=== PATIENT | male | born 1995 | race American Indian/Alaskan Native ===

== ENCOUNTER 2016-09-09 21:12 | Emergency (ER) | payer SELFPAY ==
[2016-09-09 22:12] LABS: Hematocrit 46.3 % (35.5-45.6); Hemoglobin 14.9 gm/dl (11.8-15.2); Mean Corpuscular HGB Conc 32 % (32-34); Mean Corpuscular Hemoglobin 28 pg (28-32); Mean Corpuscular Volume 86 fl (84-94); Platelet Count 193 K/mm3 (140-440); Red Cell Distribution Width 13.3 % (13.2-15.2); White Blood Count 6.3 K/mm3 (4.5-11.0)
[2016-09-09 22:15] LABS: Alanine Aminotransferase 16 units/L (7-56); Albumin 4.4 g/dL (3.9-5); Albumin/Globulin Ratio 1.5 %; Alkaline Phosphatase 51 units/L (35-129); Anion Gap 20 mmol/L; Bilirubin,Total < 0.20 mg/dL (0.1-1.2); Blood Urea Nitrogen 15 mg/dL (9-20); Calcium 9.1 mg/dL (8.4-10.2); Carbon Dioxide 21 mmol/L (22-30); Chloride 104.2 mmol/L (98-107); Glucose 107 mg/dL (75-100); Lipase 40 units/L (13-60); Sodium 141 mmol/L (137-145); Total Protein 7.3 g/dL (6.3-8.2)
[2016-09-09 23:02] LABS: Bilirubin,Urine NEG (Negative); Blood,Urine NEG (Negative); Ketones,Urine NEG (Negative); Leukocyte Esterase,Urine NEG (Negative); Mucus,Urine FEW /HPF; Nitrite,Urine NEG (Negative); Protein,Urine <15 mg/dL mg/dL (Negative); Urobilinogen,Urine < 2.0 mg/dL (<2.0)
--- NOTE | 2016-09-10 00:08 | Emergency Department Report ---
HPI - General Chief Complaint: Urogenital-Male Time Seen by Provider: 09/09/16 23:55 - HPI HPI: Room 4 The patient is a 20-year-old male presenting with a chief complaint of flank pain and frequency. Patient states she has a history of chronic back pain for 1 -2 years but has never sought medical attention. The patient states yesterday he developed urinary frequency. Patient denies dysuria or hematuria. Patient denies penile discharge. Patient denies fever. Location: Right flank Duration: Pain times one to 2 years, frequency since yesterday Quality: Dull Severity: Moderate Modifying factors: [see above] Context: [see above] Mode of transportation: Unknown ED Past Medical Hx - Past Medical History Hx Hypertension: Yes Additional medical history: Mass on bilateral kidneys - Surgical History Past Surgical History?: No - Social History Smoking Status: Never Smoker Substance Use Type: Marijuana - Medications Home Medications: Home Medications Medication Instructions Recorded Confirmed Last Taken Type Ibuprofen [Motrin 800 MG tab] 800 mg PO Q8HR PRN #20 tablet 09/10/16 Unknown Rx Sulfamethoxazole/Trimethoprim 1 each PO BID #14 tablet 09/10/16 Unknown Rx [Bactrim DS TAB] ED Review of Systems ROS: Stated complaint: URGENCY TO URINATE Other details as noted in HPI Comment: All other systems reviewed and negative Constitutional: denies: chills, fever Eyes: denies: eye pain, eye discharge, vision change ENT: denies: ear pain, throat pain Respiratory: denies: cough, shortness of breath, wheezing Cardiovascular: denies: chest pain, palpitations Endocrine: no symptoms reported Gastrointestinal: abdominal pain Genitourinary: frequency. denies: dysuria, hematuria, discharge Musculoskeletal: back pain. denies: joint swelling, arthralgia Skin: denies: rash, lesions Neurological: denies: headache, weakness, paresthesias Psychiatric: denies: anxiety, depression Hematological/Lymphatic: denies: easy bleeding, easy bruising Physical Exam - Physical Exam Vital Signs: Vital Signs 09/09/16 09/09/16 09/09/16 21:31 23:08 23:51 Temperature 98.4 F 97.9 F 98.1 F Pulse Rate 78 66 89 Respiratory 18 20 14 Rate Blood Pressure 196/116 152/103 Blood Pressure 152/99 [Left] O2 Sat by Pulse 100 98 97 Oximetry Physical Exam: GENERAL: The patient is well-developed well-nourished male lying on stretcher sleeping not appearing to be in acute distress. Easily awakened HEENT: Normocephalic. Atraumatic. Extraocular motions are intact. Patient has moist mucous membranes. NECK: Supple. Regular midline CHEST/LUNGS: Clear to auscultation. There is no respiratory distress noted. HEART/CARDIOVASCULAR: Regular. There is no tachycardia. There is no gallop rub or murmur. ABDOMEN: Abdomen is soft, with mild discomfort to palpation in the right lower quadrant and right upper quadrant. Patient has normal bowel sounds. There is no abdominal distention. SKIN: There is no rash. There is no edema. There is no diaphoresis. NEURO: The patient is awake, alert, and oriented. The patient is cooperative. The patient has normal speech MUSCULOSKELETAL: There is no CVA tenderness. There is no evidence of acute injury. ED Course Vital Signs 09/09/16 09/09/16 09/09/16 21:31 23:08 23:51 Temperature 98.4 F 97.9 F 98.1 F Pulse Rate 78 66 89 Respiratory 18 20 14 Rate Blood Pressure 196/116 152/103 Blood Pressure 152/99 [Left] O2 Sat by Pulse 100 98 97 Oximetry ED Medical Decision Making - Lab Data Result diagrams: 09/09/16 21:44 09/09/16 21:44 Laboratory Tests 09/09/16 09/09/16 09/09/16 21:44 21:44 22:40 WBC 6.3 RBC 5.40 H Hgb 14.9 Hct 46.3 H MCV 86 MCH 28 MCHC 32 RDW 13.3 Plt Count 193 Sodium 141 Potassium 4.0 Chloride 104.2 Carbon Dioxide 21 L Anion Gap 20 BUN 15 Creatinine 1.0 Estimated GFR > 60 BUN/Creatinine Ratio 15.00 Glucose 107 H Calcium 9.1 Total Bilirubin < 0.20 AST 20 ALT 16 Alkaline Phosphatase 51 Total Protein 7.3 Albumin 4.4 Albumin/Globulin Ratio 1.5 Lipase 40 Urine Color Yellow Urine Turbidity Clear Urine pH 5.0 Ur Specific [place] 1.027 Urine Protein <15 mg/dl Urine Glucose (UA) Neg Urine Ketones Neg Urine Blood Neg Urine Nitrite Neg Urine Bilirubin Neg Urine Urobilinogen < 2.0 Ur Leukocyte Esterase Neg Urine WBC (Auto) 1.0 Urine RBC (Auto) 2.0 Urine Mucus Few - Radiology Data Radiology results: report reviewed (CT abdomen and pelvis), image reviewed (CT abdomen and pelvis) CT abdomen and pelvis (read by radiologist)-there is no evidence of intestinal or urinary tract obstruction. No ileus or enteritis. The appendix is normal. Bilateral scattered renal corpus cyst. - Medical Decision Making Given patient's history of urinary frequency I will treat empirically for UTI. The patient's urinalysis only shows some mucus and is not necessarily definitive for UTI however given the lack of other etiologies of the patient's symptoms I will initiate antibiotic therapy. - Differential Diagnosis UTI, pyelonephritis, renal colic, appendicitis, diabetes, Critical care attestation.: If time is entered above; I have spent that time in minutes in the direct care of this critically ill patient, excluding procedure time. ED Disposition Clinical Impression: Urinary frequency, Right flank pain Disposition: TO HOME OR SELFCARE Is pt being admited?: No Does the pt Need Aspirin: No Condition: Stable Instructions: Dysuria (ED), Flank Pain (ED) Additional Instructions: Return to the emergency department immediately should you develop worsening symptoms, fever, inability to tolerate food or liquid or any other concerns. Prescriptions: Ibuprofen [Motrin 800 MG tab] 800 mg PO Q8HR PRN #20 tablet PRN Reason: Pain Sulfamethoxazole/Trimethoprim [Bactrim DS TAB] 1 each PO BID #14 tablet Referrals: DEMETRIO MCNEAL MD [Staff Physician] - 3-5 Days (Dr. Mcneal is a urologist. Please follow up with him for further evaluation) NOÉ JOSEPH JR, MD [Staff Physician] - 3-5 Days (Dr. Joseph is a primary physician. Please follow up with him to be established as a patient) Time of Disposition: 02:26
--- NOTE | 2016-09-10 02:16 | Cat Scan Report ---
FINAL REPORT PROCEDURE: CT ABDOMEN PELVIS WO CON TECHNIQUE: Computerized axial tomography of the abdomen and pelvis was performed without intravenous contrast. This study is performed without intravascular contrast material and its sensitivity for abdominal and pelvic pathology, including neoplasms, inflammation, abscess, free fluid, thrombosis, arterial dissection and infarction, is reduced compared with a contrast enhanced study. HISTORY: right flank pain. h/o renal masses COMPARISON: No prior studies are available for comparison. FINDINGS: Visualized lower thorax: No significant abnormality. Liver: Normal size and attenuation. Spleen: Normal size and attenuation. Gallbladder and biliary system: Normal. Pancreas: Normal. Adrenals: Normal. Kidneys: Both kidneys have a normal size. There are numerous areas of hypoattenuation identified throughout both renal cortex. Multiple renal cortical cysts are identified. The largest measure up to 2 centimeters. No hydronephrosis. No renal stones.. GI tract: Stomach is normal. The small bowel has a normal caliber. No obstruction, ileus or enteritis. The cecum, appendix and colon are normal.. Lymph nodes and mesentery: Normal. Vasculature: Normal. Bladder: Normal. Reproductive organs: Normal. Peritoneum: No free fluid. Musculoskeletal structures: No significant abnormality. Other: None. IMPRESSION: There is no evidence of intestinal or urinary tract obstruction. No ileus or enteritis. The appendix is normal. Bilateral scattered renal cortical cysts..
[2016-09-10 03:01] VITALS: BP 129/78
== END 2016-09-10 03:02 | disposition home or self-care (01) ==
LOC: ED 21:12
DX: R35.0 Frequency of micturition (principal); R10.30 Lower abdominal pain, unspecified; I10 Essential (primary) hypertension; F12.10 Cannabis abuse, uncomplicated
CPT/HCPCS: 36415; 74176; 80053; 81001; 83690; 85027; 99284

== ENCOUNTER 2016-12-06 02:13 | Emergency (ER) | payer SELFPAY ==
[2016-12-06 09:25] LABS: Bilirubin,Urine NEG (Negative); Blood,Urine NEG (Negative); Ketones,Urine NEG (Negative); Leukocyte Esterase,Urine NEG (Negative); Mucus,Urine FEW /HPF; Nitrite,Urine NEG (Negative); Protein,Urine <15 mg/dL mg/dL (Negative); Urobilinogen,Urine < 2.0 mg/dL (<2.0)
[2016-12-06] MEDS ORDERED: TORADOL IM ONE (11:33)
--- NOTE | 2016-12-06 11:38 | Emergency Department Report ---
ED General Adult HPI - General Chief complaint: Urogenital-Male Stated complaint: LOWER BACK PAIN Time Seen by Provider: 12/06/16 11:26 Source: patient Mode of arrival: Ambulatory Limitations: No Limitations - History of Present Illness Initial comments: pt is a 21 y/o aam with hx htn diet controlled, and low back with renal cyst x 2 yrs seen in ed 09/2016 for same dx with uti, presents today for low back pain with dysuria frequency and urgency x last 4 days worsened to day prompting pt to seek tx in ed, pt has not seen urologist as advised on previous visit but does endorse that symptoms are "worse this time" pt denies penile discharge no unprotected sex, there is no fever no chills no n/v no abdominal pain , no weakness no tingling no no paresthesia no loss or decreased in bowel or bladder function in contrast to that stated in traige note. pt advise that " I just have to pee all the time" Onset/Timin -: year(s) Location: back Radiation: flank Severity scale (0 -10): 8 Quality: aching, sharp Consistency: intermittent Improves with: none Worsens with: other (voiding ) Associated Symptoms: denies: confusion, chest pain, cough, diaphoresis, fever/ chills, headaches, loss of appetite, malaise, nausea/vomiting, rash, seizure, shortness of breath, syncope, weakness Treatments Prior to Arrival: none - Related Data Previous Rx's Medication Instructions Recorded Last Taken Type Ibuprofen [Motrin 800 MG tab] 800 mg PO Q8HR PRN #20 tablet 09/10/16 Unknown Rx Sulfamethoxazole/Trimethoprim 1 each PO BID #14 tablet 09/10/16 Unknown Rx [Bactrim DS TAB] traMADol [Ultram 50 MG tab] 50 mg PO Q6HR PRN #20 tablet 12/06/16 Unknown Rx Allergies Allergy/AdvReac Type Severity Reaction Status Date / Time No Known Allergies Allergy Unverified 09/09/16 21:35 ED Review of Systems ROS: Stated complaint: LOWER BACK PAIN Other details as noted in HPI Constitutional: denies: chills, fever Eyes: denies: eye pain, eye discharge, vision change ENT: denies: ear pain, throat pain Respiratory: denies: cough, shortness of breath, wheezing Cardiovascular: denies: chest pain, palpitations Endocrine: no symptoms reported Gastrointestinal: denies: abdominal pain, nausea, vomiting, diarrhea, constipation, hematemesis, melena, hematochezia Genitourinary: urgency, dysuria, frequency. denies: hematuria, discharge, testicular pain, testicular mass Musculoskeletal: denies: back pain, joint swelling, arthralgia Skin: denies: rash, lesions Neurological: denies: headache, weakness, paresthesias Psychiatric: denies: anxiety, depression Hematological/Lymphatic: denies: easy bleeding, easy bruising ED Past Medical Hx - Past Medical History Hx Hypertension: Yes Additional medical history: Mass on bilateral kidneys - Social History Smoking Status: Current Some Day Smoker Substance Use Type: None, Marijuana - Medications Home Medications: Home Medications Medication Instructions Recorded Confirmed Last Taken Type Ibuprofen [Motrin 800 MG tab] 800 mg PO Q8HR PRN #20 tablet 09/10/16 Unknown Rx Sulfamethoxazole/Trimethoprim 1 each PO BID #14 tablet 09/10/16 Unknown Rx [Bactrim DS TAB] traMADol [Ultram 50 MG tab] 50 mg PO Q6HR PRN #20 tablet 12/06/16 Unknown Rx ED Physical Exam - General Limitations: No Limitations ED Course Vital Signs 12/06/16 12/06/16 12/06/16 02:31 05:24 08:49 Temperature 98.6 F 97.8 F Pulse Rate 85 86 Respiratory 18 16 Rate Blood Pressure 142/89 152/86 O2 Sat by Pulse 98 98 99 Oximetry 12/06/16 11:50 Temperature Pulse Rate Respiratory 14 Rate Blood Pressure O2 Sat by Pulse Oximetry ED Medical Decision Making - Lab Data Result diagrams: 12/06/16 11:55 12/06/16 11:55 Laboratory Tests 12/06/16 12/06/16 12/06/16 08:48 11:55 11:55 WBC 4.8 RBC 5.31 H Hgb 14.4 Hct 45.2 MCV 85 MCH 27 L MCHC 32 RDW 13.8 Plt Count 195 Seg Neutrophils % Oil Well Pumper Sodium 141 Potassium 4.0 Chloride 104.3 Carbon Dioxide 25 Anion Gap 16 BUN 14 Creatinine 1.0 Estimated GFR > 60 BUN/Creatinine Ratio 14 Glucose 136 H Calcium 8.8 Total Bilirubin 0.30 AST 17 ALT 19 Alkaline Phosphatase 52 Total Protein 6.6 Albumin 3.8 L Albumin/Globulin Ratio 1.4 Urine Color Yellow Urine Turbidity Clear Urine pH 6.0 Ur Specific [place] 1.020 Urine Protein <15 mg/dl Urine Glucose (UA) Neg Urine Ketones Neg Urine Blood Neg Urine Nitrite Neg Urine Bilirubin Neg Urine Urobilinogen < 2.0 Ur Leukocyte Esterase Neg Urine WBC (Auto) 1.0 Urine RBC (Auto) 5.0 Urine Mucus Few - EKG Data -: EKG Interpreted by Me - Radiology Data Radiology results: report reviewed, image reviewed bilat renal cyst, small nonobstructing renal calculi right, no change from ct - Medical Decision Making pt is a 21 y/o aam with hx htn diet controlled, and low back with renal cyst x 2 yrs seen in ed 09/2016 for same dx with uti, presents today for low back pain with dysuria frequency and urgency x last 4 days worsened to day prompting pt to seek tx in ed, pt has not seen urologist as advised on previous visit but does endorse that symptoms are "worse this time" pt denies penile discharge no unprotected sex, there is no fever no chills no n/v no abdominal pain , no weakness no tingling no no paresthesia no loss or decreased in bowel or bladder function in contrast to that stated in traige note. pt advise that " I just have to pee all the time" exam: pt appears well nontoxic wellnourish and hydrated tolerationg po intake without n/v no cva tenderness no penile discharge no rash no lymph no testicular pain , ua: scant blood /protein, cmp: cbc: normal: normal , there is no hematuria no weakness , pt denies sexual contact will follow up with urology Dr Mcneal, and tramadol po prn pain pt verbalized agreement and understanding with discharge plan. Critical care attestation.: If time is entered above; I have spent that time in minutes in the direct care of this critically ill patient, excluding procedure time. ED Disposition Clinical Impression: Renal stones Disposition: - TO HOME OR SELFCARE Is pt being admited?: No Does the pt Need Aspirin: No Condition: Good Instructions: Kidney Stones (ED) Prescriptions: traMADol [Ultram 50 MG tab] 50 mg PO Q6HR PRN #20 tablet PRN Reason: Pain Referrals: DEMETRIO MCNEAL MD [Staff Physician] - 3-5 Days Forms: Work/School Release Form(ED) Time of Disposition: 13:47
[2016-12-06 12:19] LABS: Hematocrit 45.2 % (35.5-45.6); Hemoglobin 14.4 gm/dl (11.8-15.2); Mean Corpuscular HGB Conc 32 % (32-34); Mean Corpuscular Hemoglobin 27 pg (28-32); Mean Corpuscular Volume 85 fl (84-94); Platelet Count 195 K/mm3 (140-440); Red Blood Count 5.31 M/mm3 (3.65-5.03); Red Cell Distribution Width 13.8 % (13.2-15.2); White Blood Count 4.8 K/mm3 (4.5-11.0)
[2016-12-06 12:37] LABS: Alanine Aminotransferase 19 units/L (7-56); Albumin 3.8 g/dL (3.9-5); Albumin/Globulin Ratio 1.4 %; Alkaline Phosphatase 52 units/L (35-129); Anion Gap 16 mmol/L; BUN/Creatinine Ratio 14; Blood Urea Nitrogen 14 mg/dL (9-20); Calcium 8.8 mg/dL (8.4-10.2); Carbon Dioxide 25 mmol/L (22-30); Chloride 104.3 mmol/L (98-107); Glucose 136 mg/dL (75-100); Sodium 141 mmol/L (137-145); Total Protein 6.6 g/dL (6.3-8.2)
--- NOTE | 2016-12-06 12:40 | Cat Scan Report ---
CT scan of abdomen and pelvis without IV contrast: Compared to 09/10/16. History: Rule out renal stone, obstruction. Findings: Normal lung bases. No pleural or pericardial effusion. Normal liver spleen pancreas and gallbladder. Normal adrenals. Multiple circumscribed hypodensities right and left kidney suggestive of cortical cyst. There is suspected tiny nonobstructing calculus right kidney. No calculi in the ureter. No evidence of hydronephrosis. Normal bladder. No free intraperitoneal fluid. No evidence of adenopathy. Gaseous colon with stool in colon. Multiple cortical cysts in kidneys. Nonobstructing tiny calculus right kidney. No significant interval change.
[2016-12-06 13:58] LABS: Basophils % (Manual) 0 % (0.0-1.8); Blastocytes % (Manual) 0 %; RBC Morphology Normal
[2016-12-06 13:59] LABS: Diff Status Complete
[2016-12-06 14:05] VITALS: BP 147/78
== END 2016-12-06 14:08 | disposition home or self-care (01) ==
LOC: ED 02:13
DX: N20.0 Calculus of kidney (principal); I10 Essential (primary) hypertension; F17.210 Nicotine dependence, cigarettes, uncomplicated; F12.10 Cannabis abuse, uncomplicated
CPT/HCPCS: 36415; 74176; 80053; 81001; 85007; 85025; 96372; 99284; J1885